=== PATIENT | female | born 1990 | race Caucasian/White ===

== ENCOUNTER → 2024-06-11 | Outpatient (CLI) | payer BC, SELFPAY ==
[2024-06-11 17:42] LABS: Absolute Lymphocyte Count 2.38 X10^3/uL (0.83-4.51); Absolute Neutrophil Count 5.6 X10^3/uL (2.0-7.7); Basophil# 0.06 X10^3/uL; Basophil% 0.7 % (0-1); Eosinophils% 1.1 % (0-5); Hematocrit 41.3 % (37-47); Hemoglobin 13.7 g/dL (12.0-15.0); Lymphocyte # 2.38 X10^3/ul (0.83-4.51); Lymphocyte % 27.3 % (19-41); Mean Corp Hgb Conc 33.2 g/dL (32-36); Mean Corpuscular Hgb 30.4 pg (27.0-32.0); Mean Corpuscular Volume 91.8 fL (81-99); Mean Platelet Vol. 10.6 fl (6.2-12.0); Monocyte# 0.54 X10^3/uL; Monocyte% 6.2 % (0-10); NRBC Flagged by Analyzer 0 % (0-5); Neutrophil # 5.59 X10^3/uL (2.7-7.7); Neutrophil % 64.2 % (47-70); Platelet Count 327 K/mm3 (150-450); RBC Distribution Width CV 12.6 % (11.6-14.6); RBC Distribution Width SD 42.3 fl (35.1-43.9); White Blood Count 8.7 K/mm3 (4.4-11.0)
[2024-06-11 18:38] LABS: ALB/GLOB Ratio 1.5 RATIO (0.9-2.4); AST(SGOT) 25 U/L (<=31); Alanine Aminotransfer ALT/SGPT 18 U/L (<=34); Albumin, Serum 4.8 g/dL (3.5-5.0); Alkaline Phosphatase 51 U/L (35-104); Anion Gap 13 (5-15); BUN 16 mg/dL (4-19); BUN/Creat Ratio 23.3 RATIO (10-20); Calcium,Total 9.7 mg/dL (7.6-11.0); Carbon Dioxide 24.8 mmol/L (21.0-32.0); Chloride 102 mmol/L (98-108); EST Glomerular Filtration Rate 118 (>60); Ferritin 116 ng/mL (22-378); Globulin 3.1 g/dL (2.2-4.2); Glucose 81 mg/dL (70-99); Potassium 3.8 mmol/L (3.3-5.1); Protein, Total 7.9 g/dL (5.9-8.4); Sodium Level 139 mmol/L (133-145); T3 Total - Triiodothyronine 1.34 ng/mL (0.80-2.00); Thyroid Stim Hormone (TSH) 0.491 uIU/mL (0.300-4.200); Total Bilirubin 0.37 mg/dL (0.00-1.30)
[2024-06-11 18:55] LABS: Iron 95 ug/dL (50-170); Iron Binding Capacity,Total 432 ug/dL (250-450); Iron Binding Capacity,Unsat 337 ug/dL (228-428)
[2024-06-14 12:08] LABS: ANTINUCLEAR ANTIBODIES DIRECT Negative (Negative)
== END | disposition home or self-care (01) ==
LOC: MTLAB 16:41
PROVIDERS: Referring Provider Physician Assistant; Visit Provider Physician Assistant
DX: L65.0 Telogen effluvium (principal); L21.8 Other seborrheic dermatitis
CPT/HCPCS: 36415; 80053; 82627; 82728; 83540; 83550; 84432; 84439; 84443; 84480; 84630; 85025; 86038; 86800; 82626